=== PATIENT | male | born 1970 | race Caucasian/White ===

== ENCOUNTER 2019-08-03 17:45 | Emergency (ER) | payer MEDICAID ==
[~2019-08-03] VITALS: Ht 193 cm; Wt 80.8 kg
[2019-08-03 18:10] VITALS: BP 114/90; Ht 193 cm; Wt 80.8 kg
[2019-08-03 18:53] LABS: BASOPHIL % 0.5 % (0-2); PLATELET COUNT 232 x10^3mcL (130-400); RED CELL DISTRIBUTION WIDTH 13.3 % (11.5-14.5)
[2019-08-03 18:59] LABS: CALCIUM 8.4 mg/dL (8.5-10.1); CARBON DIOXIDE 26.8 mmol/L (21-32); CHLORIDE SERUM 99 mmol/L (98-107); CREATININE SERUM 0.8 mg/dL (0.7-1.3); GFR1 > 60 mL/min; GLUCOSE SERUM 94 mg/dL (74-106); POTASSIUM SERUM 3.1 mmol/L (3.5-5.1); SODIUM SERUM 135 mmol/L (136-145)
[2019-08-03 19:02] LABS: microscopic required? NO
[2019-08-03 19:04] LABS: ALKALINE PHOSPHATASE 68 U/L (46-116); ALT/SGPT 68 U/L (16-63); AST/SGOT 84 U/L (15-37); BILIRUBIN TOTAL 0.58 mg/dL (0.20-1.00); TOTAL PROTEIN, SERUM 7.4 g/dL (6.4-8.2)
[2019-08-03 19:05] LABS: ALBUMIN 3.2 g/dL (3.4-5.0)
[2019-08-03 19:07] LABS: urine erythrocyte NEGATIVE (NEGATIVE)
== END 2019-08-03 19:45 | disposition home or self-care (01) ==
LOC: ED 17:45
PROVIDERS: Emergency Medicine
DX: F41.9 Anxiety disorder, unspecified (principal); F17.210 Nicotine dependence, cigarettes, uncomplicated
CPT/HCPCS: 36415; 99406

== ENCOUNTER 2020-09-18 15:11 | Emergency (ER) | payer OTHER ==
[~2020-09-18] VITALS: Ht 193 cm; Wt 80.7 kg
[2020-09-18 15:20] VITALS: Ht 193 cm; Wt 80.7 kg
[2020-09-18] MEDS ORDERED: NAPROSYN500 MG PO (16:25)
[2020-09-18 16:51] VITALS: BP 169/109
== END 2020-09-18 16:51 | disposition home or self-care (01) ==
LOC: ED 15:11
DX: S20.212A Contusion of left front wall of thorax, initial encounter (principal); W22.8XXA Striking against or struck by other objects, initial encounter; Y93.89 Activity, other specified; Y92.89 Other specified places as the place of occurrence of the external cause; Y99.8 Other external cause status
CPT/HCPCS: J1885